=== PATIENT | female | born 1980 | race Caucasian/White ===

== ENCOUNTER 2017-05-02 14:19 | Inpatient (IN) | payer OTHER ==
[2017-05-02] MEDS: RINGER'S SOLUTION,LACTATED 1,000 ML IV PRN ×2 (14:30→18:02)
[2017-05-02] MEDS ORDERED: BETAMETH ACET/BETAMET SOD PHOS 6 MG/ML VIAL IM ONE (15:30)
[2017-05-02] MEDS ORDERED: TERBUTALINE SULFATE 1 MG/ML VIAL SC ONE (16:31)
[2017-05-02] MEDS ORDERED: TERBUTALINE SULFATE 1 MG/ML VIAL SC PRN (16:39)
[2017-05-02] MEDS ORDERED: DEXTROSE 5%-LACTATED RINGERS 1,000 ML IV PRN (16:40)
[2017-05-02] MEDS ORDERED: OXYTOCIN 20 UNITS in RINGER'S SOLUTION,LACTATED 1,000 ML IV ONE (18:03)
[2017-05-02] MEDS ORDERED: RINGER'S SOLUTION,LACTATED 1,000 ML IV PRN (18:03)
[2017-05-02] MEDS ORDERED: ceFAZolin SODIUM/DEXTROSE,ISO 2 GM/50 ML BAG IV ONE (18:30)
[2017-05-02] MEDS ORDERED: RINGER'S SOLUTION,LACTATED 1,000 ML IV ONE (19:15)
[2017-05-02] MEDS ORDERED: BISACODYL 10 MG SUPP.RECT RC PRN (20:35)
[2017-05-02] MEDS ORDERED: SIMETHICONE 80 MG TAB.CHEW PO PRN (20:35)
[2017-05-02] MEDS ORDERED: SENNOSIDES 8.6 MG TABLET PO PRN (20:35)
[2017-05-02] MEDS ORDERED: ONDANSETRON HCL/PF 2 MG/ML VIAL IV PRN (20:35)
[2017-05-02] MEDS ORDERED: ALBUTEROL SULFATE 60 PUFF INHALER IH PRN (20:36)
--- NOTE | 2017-05-02 20:40 | OR ---
Operative Report - Dictated Report Narrative: Indication: 36-year-old 6 para 3 at 35 6/7 weeks presents to labor and delivery with labor and prior section 3 Pre Operative Diagnosis: 35 6/7 week intrauterine , prior section 3, labor Post Operative Diagnosis: Same. Procedure: Repeat low transverse section. Surgeon: Jose Martin Ojeda DO Carpet Inspector Finished: OR Staff Anesthesia: Spinal, tap block requested for postoperative pain control Estimated Blood Loss: 250 mL Urine Output: 200 mL clear urine Fluids Replacement: 1800 mL of crystalloid Drains: Herman to gravity Surgical Complications: None Specimens: Placenta to freezer Findings: Male in cephalic presentation born at 1931 on 05/02/2016 with Apgars 9 and 9, weighing 2950 g. Normal uterus, tubes, ovaries Technique: The patient was taken to the operating room and placed in dorsal supine position with a left lateral tilt. After adequate spinal anesthesia, herman catheter inserted, SCDs placed, and 2 g of Ancef given preoperatively, the abdominal cavity was entered using sharp and blunt dissection. Two rolled laps were placed in the pericolic gutters on either side of the uterus. A transverse incision was made in the lower uterine segment and extended laterally and upwardly with digital traction. Clear fluid was noted upon amniotomy. The was delivered easily. The cord was clamped and cut and was handed off to awaiting regulatory lead. The placenta was allowed to deliver spontaneously. The uterus was cleared of clot and debris. Uterine incision was closed with 0 Vicryl using a running stitch. A second imbricating layer was placed. Excellent hemostasis was noted. The rolled laps were removed from the abdominal cavitiy. The peritoneum was closed with a running 3- 0 Monocryl. The same suture was used to approximate the rectus and pyramidalis muscles. The fascia was closed with a running 0 Vicryl. The subcutaneous layer was closed with a running 3-0 Monocryl. The same suture was used to approximate the subdermal layer. The skin was closed with a running 4-0 Monocryl and Dermabond. Sponge, lap, needle, and instrument count were correct x 2. Disposition: To post anesthesia care unit in good condition History for Definition: * The number of deliveries resulting in a live the patient experienced prior to current hospitalization * The previous delivery of live twins or any live multiple gestation is considered one live event. *If primagravida or nulliparous is documented select zero for the number of previous live births. Live Events: 3
--- NOTE | 2017-05-02 20:51 | OR ---
Anesthesia Procedure Note - Anesthesia Procedure Note Date of Service: 05/02/17 Narrative: Vital Signs - Last Taken Temp 36.9 C 05/02/17 20:40 Pulse 81 05/02/17 20:40 Resp 18 05/02/17 20:40 BP 122/66 05/02/17 20:40 Pulse Ox 98 05/02/17 20:40 O2 Oxygen Delivery Method Room Air 05/02/17 20:49 ANESTHESIA PROCEDURE NOTE Date of Procedure: 05/02/2017. Time of procedure: 2024. Performed by: Sai Palumbo CRNA Yarn Conditioner: None. Preprocedure diagnosis: labor, active labor, status post . Post procedure diagnosis: Same. Procedure: Bilateral ultrasound-guided transversus abdominis plane block for postop analgesia. Indications: The patient is a 36 -year-old female post section. Findings: See below. Details of the procedure: ChloraPrep was used on the patient's abdomen and the procedure was performed under sterile technique. The right abdominal fascial layer between the internal oblique muscle and the transversus abdominis muscles was identified under ultrasound guidance. A 22-gauge 4 inch block needle was inserted under ultrasound guidance to the target fascial plane. 15 mL's of 0.5 % bupivacaine plus epinephrine 1 200,000 was injected after negative aspiration for blood. The needle was removed intact and the procedure was then repeated at the left side. No complications were noted. The images were retained in the Hospital medical database . EBL: Minimal. Fluids: N/A. Specimen: N/A. Post procedure condition: The patient tolerated the procedure well. No complications were noted. Thank you for this consultation. Sai Palumbo CRNA
[2017-05-02] MEDS: oxyCODONE HCL/ACETAMINOPHEN 1 TAB TABLET PO PRN (21:30)
[2017-05-02] MEDS: DOCUSATE SODIUM 100 MG CAPSULE PO SCH (21:30)
[2017-05-02] MEDS: IBUPROFEN 800 MG TABLET PO PRN (22:33)
[2017-05-03] MEDS: oxyCODONE HCL/ACETAMINOPHEN 1 TAB TABLET PO PRN (03:00)
[2017-05-03] MEDS: ALBUTEROL SULFATE/IPRATROPIUM 3 ML NEBU IH PRN ×4 (05:11→18:04)
[2017-05-03] MEDS: IBUPROFEN 800 MG TABLET PO PRN ×3 (05:58→20:12)
[2017-05-03] MEDS ORDERED: ALBUTEROL SULFATE 2.5 MG/3 ML VIAL.NEB IH PRN (06:16)
[2017-05-03] MEDS: ENOXAPARIN SODIUM 40 MG/0.4 ML SYRG SC SCH (08:01)
[2017-05-03] MEDS: DOCUSATE SODIUM 100 MG CAPSULE PO SCH ×2 (08:03→20:12)
[2017-05-03] MEDS: PRENATAL VITS96/IRON FUM/FOLIC 1 TAB TABLET PO SCH (12:12)
--- NOTE | 2017-05-03 18:23 | PN ---
Subjective - Date and Time Seen Date: 05/03/17 Time: 18:23 Objective - Vitals Vitals: Last Vital Signs Temp 36.5 C 05/03/17 11:43 Pulse 88 05/03/17 18:04 Resp 16 05/03/17 18:04 BP 96/59 05/03/17 11:43 Pulse Ox 96 05/03/17 18:04 Patient denies complaints. Tolerating regular diet. Ambulating without difficulty. Pain well controlled. Lochia wnl. Abdomen - soft, appropriately tender Incision - clean, dry, intact Uterus - firm, at umbilicus -1 No calf tenderness Impression: Post op day #1 s/p repeat section. Asthma-stable Plan: Continue routine post-operative/ care Cauti Physician Documentation - Urinary Catheter Management Urethral ([facility]) Date of Insertion: 05/02/17 Time of Insertion: 19:15 Date of Removal: 05/03/17 Time of Removal: 08:00
[2017-05-04] MEDS: oxyCODONE HCL/ACETAMINOPHEN 1 TAB TABLET PO PRN ×3 (01:16→22:12)
[2017-05-04] MEDS: DOCUSATE SODIUM 100 MG CAPSULE PO SCH (08:01)
[2017-05-04] MEDS: IBUPROFEN 800 MG TABLET PO PRN ×3 (08:01→22:11)
[2017-05-04] MEDS: ENOXAPARIN SODIUM 40 MG/0.4 ML SYRG SC SCH (08:01)
[2017-05-04] MEDS: PRENATAL VITS96/IRON FUM/FOLIC 1 TAB TABLET PO SCH (08:01)
[2017-05-04] MEDS: ALBUTEROL SULFATE/IPRATROPIUM 3 ML NEBU IH PRN ×2 (11:03→18:50)
--- NOTE | 2017-05-04 14:34 | PN ---
Subjective - Date and Time Seen Date: 05/04/17 Time: 14:33 Objective - Vitals Vitals: Last Vital Signs Temp 36.6 C 05/04/17 07:30 Pulse 84 05/04/17 11:03 Resp 18 05/04/17 11:03 BP 102/69 05/04/17 07:30 Pulse Ox 97 05/04/17 11:03 Patient complains of hard lump in left breast. Ambulating well. Tolerating regular diet. Pain well controlled. Lochia wnl. Abdomen - soft, appropriately tender Incision - clean, dry, intact Uterus - firm, at umbilicus -2 No calf tenderness Impression: Post op day #2 s/p repeat section. Asthma-stable. Clogged milk duct. Plan: Continue routine post-operative/ care. Warm compresses and frequent pumping/feeding to breast. Cauti Physician Documentation - Urinary Catheter Management Urethral ([facility]) Date of Insertion: 05/02/17 Time of Insertion: 19:15 Date of Removal: 05/03/17 Time of Removal: 08:00
[2017-05-05] MEDS: ALBUTEROL SULFATE/IPRATROPIUM 3 ML NEBU IH PRN ×4 (00:33→13:16)
[2017-05-05] MEDS: DOCUSATE SODIUM 100 MG CAPSULE PO SCH ×2 (00:36→09:26)
[2017-05-05] MEDS: oxyCODONE HCL/ACETAMINOPHEN 1 TAB TABLET PO PRN (04:07)
[2017-05-05] MEDS: IBUPROFEN 800 MG TABLET PO PRN ×2 (04:08→11:28)
[2017-05-05] MEDS: ENOXAPARIN SODIUM 40 MG/0.4 ML SYRG SC SCH (07:32)
[2017-05-05 08:06] VITALS: BP 113/65
[2017-05-05] MEDS: PRENATAL VITS96/IRON FUM/FOLIC 1 TAB TABLET PO SCH (09:26)
--- NOTE | 2017-05-05 11:29 | PN ---
Subjective - Date and Time Seen Date: 05/05/17 Time: 11:28 Objective - Vitals Vitals: Last Vital Signs Temp 36.8 C 05/05/17 07:30 Pulse 88 05/05/17 09:08 Resp 18 05/05/17 09:08 BP 113/65 05/05/17 07:30 Pulse Ox 98 05/05/17 08:58 Patient denies complaints. Ambulating without difficulty. Tolerating regular diet. Pain well controlled. Lochia wnl. Abdomen - soft, appropriately tender Incision - clean, dry, intact Uterus - firm, at umbilicus -3 No calf tenderness Impression: Post op day #3 s/p repeat section. Asthma-stable. Clogged milk duct resolved Plan: Routine discharge instructions Cauti Physician Documentation - Urinary Catheter Management Urethral ([facility]) Date of Insertion: 05/02/17 Time of Insertion: 19:15 Date of Removal: 05/03/17 Time of Removal: 08:00
== END 2017-05-05 15:00 | disposition home or self-care (01) | DRG 766 ==
LOC: OBCLINIC 14:19 → OBSVTOIN 16:41 → OB 16:41 → MS 21:18
PROVIDERS: ADMIT Obstetrics & Gynecology; ATTEND Obstetrics & Gynecology
PROC: 4A1HXCZ Monitoring of Products of Conception, Cardiac Rate, External Approach (ICD-10-PCS; 2017-05-02)
PROC: 10D00Z1 Extraction of Products of Conception, Low, Open Approach (ICD-10-PCS; principal; 2017-05-02 19:00)
DX: O60.14X0 Preterm labor third trimester with preterm delivery third trimester, not applicable or unspecified (principal); O34.211 Maternal care for low transverse scar from previous cesarean delivery; J45.40 Moderate persistent asthma, uncomplicated; F41.1 Generalized anxiety disorder; Z3A.36 36 weeks gestation of pregnancy; Z37.0 Single live birth